=== PATIENT | female | born 1970 | race Caucasian/White ===

== ENCOUNTER → 2021-10-25 | Outpatient (CLI) | payer OTHER ==
--- NOTE | 2021-10-25 14:22 | XR ---
EXAMINATION TYPE: XR cervical spine w flex/ext DATE OF EXAM: 10/25/2021 TECHNIQUE: Frontal, lateral, flexion and extension lateral, oblique, and open mouth view of the cervi rene spine are obtained. HISTORY: M54.2 Cervical Pain COMPARISON: None FINDINGS: The cervical spine is visualized in its entirety from C1 thru the top of T1 level, there i s grade 1 retrolisthesis C4 on C5. Vertebral body heights are maintained. There is mild to moderate d isc space narrowing and mild spurring C4-C5 level. Dynamic imaging shows improved positioning on flex ion but persistent and stable subluxation on extension at the C4-C5 level. There is minimal grade 1 r etrolisthesis C5 on C6 which also becomes more prominent on extension but resolves on flexion. Verteb ral body and disc space height otherwise are maintained. The pre-vertebral soft tissue appears within normal limits. The C1-C2 articulation is within normal limits on the open mouth view. The oblique images are within normal limits. Overlying bra strap is partially imaged. IMPRESSION: As above.
== END | disposition home or self-care (01) ==
LOC: RADXRMAIN 13:36
PROVIDERS: ATTEND Internal Medicine Hospice and Palliative Medicine
DX: M43.12 Spondylolisthesis, cervical region (principal); M50.80 Other cervical disc disorders, unspecified cervical region; M43.5X2 Other recurrent vertebral dislocation, cervical region
CPT/HCPCS: 72052

== ENCOUNTER → 2021-11-11 | Outpatient (CLI) | payer OTHER ==
--- NOTE | 2021-11-12 07:13 | MR ---
MRI CERVICAL SPINE: CLINICAL HISTORY: Neck pain into left arm for 4 weeks. TECHNIQUE: Multiplanar, multisequence imaging of the cervical spine is performed without and with IV contrast. COMPARISON: Cervical spine x-ray October 25, 2021. FINDINGS: Sagittal images of the cervical spine show the craniocervical junction to appear within nor mal limits. The cervical and upper thoracic spinal cord is normal in course, caliber, and signal. Re demonstration of grade 1 retrolisthesis C4 on C5. Mild to moderate disc space narrowing with mild an terior spurring and some heterogeneous Modic type II endplate changes is present at this level. The v ertebral body and intravertebral disk heights otherwise are normal. The bone marrow signal intensity is otherwise within normal limits. Axial images show C2-C3 level to appear within normal limits. Axial images at C3-C4 level show left-sided uncovertebral facet degenerative changes causing asymmetr ic mild right sided neural foraminal narrowing. Axial images at C4-C5 level shows spondylolisthesis with tiny central disc protrusion mildly effacing the anterior thecal sac, there is additional right foraminal disc protrusion causing [id number] e right-sided neural foraminal narrowing. Axial images at C5-C6, C6-C7, C7-T1 levels all appear within normal limits. IMPRESSION: Spondylolisthesis and small disc herniation C4-C5 level.
== END | disposition home or self-care (01) ==
LOC: RADMRIMAIN 15:02
PROVIDERS: ATTEND Internal Medicine Hospice and Palliative Medicine
DX: M50.121 Cervical disc disorder at C4-C5 level with radiculopathy (principal); M43.12 Spondylolisthesis, cervical region
CPT/HCPCS: 72141

== ENCOUNTER → 2022-04-23 | Outpatient (CLI) | payer OTHER ==
--- NOTE | 2022-04-24 10:31 | MM ---
Reason for Exam: Screening (asymptomatic). Last mammogram was performed 2 year(s) and 11 month(s) ago. Patient History: Menarche at age 14. First Full-Term at age 17. Maternal grandmother had ovarian cancer, age 60. Last menstrual period: 03/15/2022 Risk Values: Dorys 5 year model risk: 0.7%. NCI Lifetime model risk: 5.7%. Prior Study Comparison: 05/25/2019 Bilateral MG screening mammo w CAD - 2, [facility] Ace[facility]. Tissue Density: The breast tissue is heterogeneously dense. This may lower the sensitivity of mammography. Findings: Analyzed By CAD. There is no suspicious group of microcalcifications or new suspicious mass in either breast. Overall Assessment: Benign, BI-RAD 2 Management: Screening Mammogram of both breasts in 1 year. A clinical breast exam by your physician is recommended on an annual basis and results should be correlated with mammographic findings. Electronically signed and approved by: Edwin Gudino M.D. Radiologis
== END | disposition home or self-care (01) ==
LOC: RADMAMWWP 11:13
PROVIDERS: ATTEND Obstetrics & Gynecology
DX: Z12.31 Encounter for screening mammogram for malignant neoplasm of breast (principal); Z80.3 Family history of malignant neoplasm of breast
CPT/HCPCS: 77063; 77067

== ENCOUNTER 2022-10-19 18:30 | Observation (INO) | payer OTHER ==
--- NOTE | 2022-10-19 18:46 | ED ---
General Adult HPI - General Chief complaint: Chest Pain Stated complaint: HEADACHE Time Seen by Provider: 10/19/22 18:36 Source: patient Mode of arrival: ambulatory Limitations: no limitations - History of Present Illness Initial comments: This is a 52-year-old female with a past medical history including GERD presents emergency department for epigastric and sternal chest burning. The patient stated this occurred abruptly at 5 PM around dinner and stated that it was consistent. The patient did state the pain does radiate to her back and stated that is associated with minor shortness of breath. The patient stated that she has never had any issues like this in the past and did state that the shortness breath is worse with laying flat. The patient denied any current service of breath, pain in the left jaw or left arm. The patient was resting in bed comfortably without any further acute distress on evaluation. The patient denied any nausea, vomiting, fevers and chills. - Related Data Allergies Allergy/AdvReac Type Severity Reaction Status Date / Time naproxen [From Naprosyn] Allergy Anaphylaxis Verified 10/19/22 18:31 sulfamethoxazole Allergy Anaphylaxis Verified 10/19/22 18:31 [From Bactrim] trimethoprim [From Bactrim] Allergy Anaphylaxis Verified 10/19/22 18:31 Review of Systems ROS Statement: Those systems with pertinent positive or pertinent negative responses have been documented in the HPI. ROS Other: All systems not noted in ROS Statement are negative. Past Medical History Past Medical History: No Reported History History of Any Multi-Drug Resistant Organisms: None Reported Past Surgical History: Tubal Ligation Past Psychological History: No Psychological Hx Reported Smoking Status: Never smoker Past Alcohol Use History: Rare Past Drug Use History: None Reported General Exam Limitations: no limitations General appearance: alert, in no apparent distress Head exam: Present: atraumatic, normocephalic, normal inspection Eye exam: Present: normal appearance, PERRL Pupils: Present: normal accommodation ENT exam: Present: normal exam, normal oropharynx, mucous membranes moist Neck exam: Present: normal inspection, full ROM Respiratory exam: Present: normal lung sounds bilaterally Cardiovascular Exam: Present: regular rate, normal rhythm, normal heart sounds GI/Abdominal exam: Present: soft, tenderness (Minor tenderness to the epigastric region noted), normal bowel sounds Extremities exam: Present: normal inspection, full ROM Back exam: Present: normal inspection, full ROM Neurological exam: Present: alert, oriented X3, CN II-XII intact Psychiatric exam: Present: normal affect, normal mood Skin exam: Present: warm, dry Course Vital Signs 10/19/22 10/19/22 18:31 19:23 Temperature 97.8 F Pulse Rate 82 68 Respiratory 16 16 Rate Blood Pressure 143/83 132/87 O2 Sat by Pulse 100 99 Oximetry EKG Findings - EKG Comments: EKG Findings:: An EKG was obtained and was interpreted by myself. Rate was 70, UT interval was 143, QRS duration 82 and QTC of 386. This EKG showed a normal sinus rhythm with no ST segment elevation or depression noted. Medical Decision Making - Medical Decision Making Was pt. sent in by a medical professional or institution (, DIALLO, CHAIRMAN CEO, urgent care, hospital, or half-way...) When possible be specific @ -No Did you speak to anyone other than the patient for history (EMS, parent, family, police, friend...)? What history was obtained from this source @ -Yes, patient's Did you review nursing and triage notes (agree or disagree)? Why? @ -I reviewed and agree with nursing and triage notes Were old charts reviewed (outside hosp., previous admission, EMS record, old EKG, old radiological studies, urgent care reports/EKG's, half-way records)? Report findings @ -No old charts were reviewed Differential Diagnosis (chest pain, altered mental status, abdominal pain women, abdominal pain men, vaginal bleeding, weakness, fever, dyspnea, syncope, headache, dizziness, GI bleed, back pain, seizure, CVA, palpatations, mental health)? @ -ACS, chest wall muscle strain EKG interpreted by me (3pts min.). @ -As above X-rays interpreted by me (1pt min.). @ -Chest x-ray was obtained and was interpreted by myself showing no acute process CT interpreted by me (1pt min.). @ -None done U/S interpreted by me (1pt. min.). @ -None done What testing was considered but not performed or refused? (CT, X-rays, U/S, labs)? Why? @ -None What meds were considered but not given or refused? Why? @ -None Did you discuss the management of the patient with other professionals (professionals i.e. , PA, CHAIRMAN CEO, lab, RT, psych nurse, psychotherapist social worker, bridge opener, teacher, probation officer, case picker)? Give summary @ -No Was smoking cessation discussed for >3mins.? @ -No Was critical care preformed (if so, how long)? @ -No Were there social determinants of health that impacted care today? How? (Homelessness, low income, unemployed, alcoholism, drug addiction, transportation, low edu. Level, literacy, decrease access to med. care, nursing home, rehab)? @ -No Was there de-escalation of care discussed even if they declined (Discuss DNR or withdrawal of care, Hospice)? DNR status @ -No What co-morbidities impacted this encounter? (DM, HTN, Smoking, COPD, CAD, Cancer, CVA, ARF, Chemo, Hep., AIDS, mental health diagnosis, sleep apnea, morbid obesity)? @ -GERD Was patient admitted / discharged? Hospital course, mention meds given and route, prescriptions, significant lab abnormalities, going to OR and other pertinent info. @ -Patient seen and evaluated emergency department. Physical exam, the patient was resting in bed without any acute distress. Vital signs were stable. Laboratory workup was within normal limits however the patient continued to have epigastric and left lower chest pain. GI cocktail was given on reevaluation the patient had continued pain. The patient was offered observation for cardiology to see and she did agree to this. The patient and her were agreeable to this plan and the patient was admitted in observation in stable condition with cardiology on consult. The patient's primary care physician was being covered by [facility] and Dr. James accepted the patient at 2125. Undiagnosed new problem with uncertain prognosis? @ -No Drug Therapy requiring intensive monitoring for toxicity (Heparin, Nitro, Insulin, Cardizem)? @ -No Were any procedures done? @ -No Diagnosis/symptom? @ -Chest pain, rule out ACS Acute, or Chronic, or Acute on Chronic? @ -Acute Uncomplicated (without systemic symptoms) or Complicated (systemic symptoms)? @ -Complicated Side effects of treatment? @ -No Exacerbation, Progression, or Severe Exacerbation? @ -No Poses a threat to life or bodily function? How? (Chest pain, USA, DC, pneumonia, PE, COPD, DKA, ARF, appy, cholecystitis, CVA, Diverticulitis, Homicidal, Suicidal, threat to staff... and all critical care pts) @ -Yes, chest pain, possible ACS - Lab Data Result diagrams: 10/19/22 18:44 10/19/22 18:44 Lab Results 10/19/22 10/19/22 10/19/22 Range/Units 18:44 18:44 18:44 WBC 6.9 (3.8-10.6) k/uL RBC 4.12 (3.80-5.40) m/uL Hgb 14.2 (11.4-16.0) gm/dL Hct 42.3 (34.0-46.0) % MCV 102.6 H (80.0-100.0) fL MCH 34.6 (25.0-35.0) pg MCHC 33.7 (31.0-37.0) g/dL RDW 12.9 (11.5-15.5) % Plt Count 235 (150-450) k/uL MPV 8.3 Neutrophils % 51 % Lymphocytes % 39 % Monocytes % 5 % Eosinophils % 2 % Basophils % 1 % Neutrophils # 3.5 (1.3-7.7) k/uL Lymphocytes # 2.7 (1.0-4.8) k/uL Monocytes # 0.3 (0-1.0) k/uL Eosinophils # 0.2 (0-0.7) k/uL Basophils # 0.1 (0-0.2) k/uL Macrocytosis Slight D-Dimer (<0.60) mg/L FEU Sodium 140 (137-145) mmol/L Potassium 3.9 (3.5-5.1) mmol/L Chloride 103 (98-107) mmol/L Carbon Dioxide 27 (22-30) mmol/L Anion Gap 10 mmol/L BUN 15 (7-17) mg/dL Creatinine 0.72 (0.52-1.04) mg/dL Est GFR (CKD-EPI)AfAm >90 (>60 ml/min/1.73 sqM) Est GFR (CKD-EPI)NonAf >90 (>60 ml/min/1.73 sqM) Glucose 123 H (74-99) mg/dL Calcium 9.4 (8.4-10.2) mg/dL Magnesium 1.9 (1.6-2.3) mg/dL Total Bilirubin 0.5 (0.2-1.3) mg/dL AST 33 (14-36) U/L ALT 34 (4-34) U/L Alkaline Phosphatase 94 (38-126) U/L Troponin I <0.012 (0.000-0.034) ng/mL NT-Pro-B Natriuret Pep pg/mL Total Protein 8.0 (6.3-8.2) g/dL Albumin 4.7 (3.5-5.0) g/dL Lipase (23-300) U/L 10/19/22 10/19/22 10/19/22 Range/Units 18:44 18:44 20:05 WBC (3.8-10.6) k/uL RBC (3.80-5.40) m/uL Hgb (11.4-16.0) gm/dL Hct (34.0-46.0) % MCV (80.0-100.0) fL MCH (25.0-35.0) pg MCHC (31.0-37.0) g/dL RDW (11.5-15.5) % Plt Count (150-450) k/uL MPV Neutrophils % % Lymphocytes % % Monocytes % % Eosinophils % % Basophils % % Neutrophils # (1.3-7.7) k/uL Lymphocytes # (1.0-4.8) k/uL Monocytes # (0-1.0) k/uL Eosinophils # (0-0.7) k/uL Basophils # (0-0.2) k/uL Macrocytosis D-Dimer <0.17 (<0.60) mg/L FEU Sodium (137-145) mmol/L Potassium (3.5-5.1) mmol/L Chloride (98-107) mmol/L Carbon Dioxide (22-30) mmol/L Anion Gap mmol/L BUN (7-17) mg/dL Creatinine (0.52-1.04) mg/dL Est GFR (CKD-EPI)AfAm (>60 ml/min/1.73 sqM) Est GFR (CKD-EPI)NonAf (>60 ml/min/1.73 sqM) Glucose (74-99) mg/dL Calcium (8.4-10.2) mg/dL Magnesium (1.6-2.3) mg/dL Total Bilirubin (0.2-1.3) mg/dL AST (14-36) U/L ALT (4-34) U/L Alkaline Phosphatase (38-126) U/L Troponin I (0.000-0.034) ng/mL NT-Pro-B Natriuret Pep 37 pg/mL Total Protein (6.3-8.2) g/dL Albumin (3.5-5.0) g/dL Lipase 126 (23-300) U/L Disposition Clinical Impression: Chest pain Disposition: ADMITTED IP TO THIS HOSP Condition: Stable Is patient prescribed a controlled substance at d/c from ED?: No Referrals: Maricarmen Kruger DO [Primary Care Provider] - 1-2 days Time of Disposition: 21:25 Decision to Admit Reason: Admit from EC Decision Date: 10/19/22 Decision Time: 21:25
[2022-10-19] MEDS ORDERED: ONDANSETRON 4 MG/2 ML VIAL IVP STA (18:58)
[2022-10-19] MEDS ORDERED: MAG HYDROX/AL HYDROX/SIMETH 30 ML, HYOSCYAMINE ELIXIR 10 ML, LIDOCAINE VISCOUS 2% 10 ML PO STA ×3 (18:58)
[2022-10-19 19:02] LABS: ALT 34 U/L (4-34); AST 33 U/L (14-36); African American GFR (CKD) >90 (>60 ml/min/1.73 sqM); Albumin 4.7 g/dL (3.5-5.0); Alkaline Phosphatase 94 U/L (38-126); Anion Gap 10 mmol/L; Blood Urea Nitrogen 15 mg/dL (7-17); Calcium 9.4 mg/dL (8.4-10.2); Carbon Dioxide 27 mmol/L (22-30); Chloride 103 mmol/L (98-107); Glucose 123 mg/dL (74-99); Magnesium 1.9 mg/dL (1.6-2.3); Non-African American GFR(CKD) >90 (>60 ml/min/1.73 sqM); Potassium 3.9 mmol/L (3.5-5.1); Sodium 140 mmol/L (137-145); Total Bilirubin 0.5 mg/dL (0.2-1.3)
--- NOTE | 2022-10-19 19:04 | XR ---
EXAMINATION TYPE: XR chest 2V DATE OF EXAM: 10/19/2022 COMPARISON: NONE HISTORY: Chest pain TECHNIQUE: 2 views FINDINGS: Heart and mediastinum are normal. Lungs are clear. Diaphragm is normal. Bony thorax is inta ct IMPRESSION: Normal chest.
[2022-10-19 19:37] LABS: Basophils # (A) 0.1 k/uL (0-0.2); Basophils % (A) 1 %; Eosinophils # (A) 0.2 k/uL (0-0.7); Eosinophils % (A) 2 %; HCT 42.3 % (34.0-46.0); HGB 14.2 gm/dL (11.4-16.0); Lymphocytes # (A) 2.7 k/uL (1.0-4.8); Lymphocytes % (A) 39 %; MCH 34.6 pg (25.0-35.0); MCHC 33.7 g/dL (31.0-37.0); MCV 102.6 fL (80.0-100.0); Macrocytosis Slight; Mean Platelet Volume 8.3; Monocytes # (A) 0.3 k/uL (0-1.0); Monocytes % (A) 5 %; Neutrophils # (A) 3.5 k/uL (1.3-7.7); Neutrophils % (A) 51 %; Platelet Count 235 k/uL (150-450); RBC 4.12 m/uL (3.80-5.40); RDW 12.9 % (11.5-15.5); WBC 6.9 k/uL (3.8-10.6)
[2022-10-19] MEDS ORDERED: NALOXONE 0.4 MG/ML 1 ML VIAL IV PRN (21:27)
[2022-10-20] MEDS: PANTOPRAZOLE 40 MG TABLET PO SCH ×2 (11:43→17:13)
--- NOTE | 2022-10-20 13:17 | P.HPIM ---
History of Present Illness H&P Date: 10/20/22 History of present illness; patient is a 22-year-old lady with past medical significant for peptic ulcer disease, GERD who presented to the ER because of chest pain. Patient stated that this chest pain started after dinner and was central in location, was a pressure-like sensation, radiating to her back and was associated with the shortness of breath, aggravated by laying flat. Patient does have history of peptic ulcer disease and was taking Prilosec in the past. Patient does admit to taking [id number] Motrin for her flulike symptoms for the last 1 week. Patient was worked up in the ER, initial white count was 6.9, hemoglobin of 14.2, d-dimer was 0.17, sodium 140, potassium 3.9, carbon dioxide 27, bun 15, creatinine 0.72. EKG done did not show any acute ST segment changes . Patient was admitted for further evaluation and treatment REVIEW OF SYSTEMS: CONSTITUTIONAL: No fever, no malaise, no fatigue. HEENT: No recent visual problems or hearing problems. Denied any sore throat. CARDIOVASCULAR: As mentioned in HPI PULMONARY: no cough, no hemoptysis. GASTROINTESTINAL: No diarrhea, no nausea, no vomiting, no abdominal pain. NEUROLOGICAL: No headaches, no weakness, no numbness. HEMATOLOGICAL: Denies any bleeding or petechiae. GENITOURINARY: Denies any burning micturition, frequency, or urgency. MUSCULOSKELETAL/RHEUMATOLOGICAL: Denies any joint pain, swelling, or any muscle pain. ENDOCRINE: Denies any polyuria or polydipsia. The rest of the 14-point review of systems is negative. PHYSICAL EXAMINATION: GENERAL: The patient is alert and oriented x3, not in any acute distress. Well developed, well nourished. HEENT: Pupils are round and equally reacting to light. EOMI. No scleral icterus. No conjunctival pallor. Normocephalic, atraumatic. No pharyngeal erythema. No thyromegaly. CARDIOVASCULAR: S1 and S2 present. No murmurs, rubs, or gallops. PULMONARY: Chest is clear to auscultation, no wheezing or crackles. ABDOMEN: Soft, nontender, nondistended, normoactive bowel sounds. No palpable organomegaly. MUSCULOSKELETAL: No joint swelling or deformity. EXTREMITIES: No cyanosis, clubbing, or pedal edema. NEUROLOGICAL: Gross neurological examination did not reveal any focal deficits. SKIN: No rashes. Assessment and plan Chest pain Peptic ulcer disease Plan; Continue telemetry monitoring Monitor vital signs Monitor CBC Trend troponins. Protonix 40 mg twice a day. Cardiology consulted Past Medical History Past Medical History: GERD/Reflux History of Any Multi-Drug Resistant Organisms: None Reported Past Surgical History: Hernia Repair, Tubal Ligation Past Psychological History: No Psychological Hx Reported Smoking Status: Never smoker Past Alcohol Use History: Rare Past Drug Use History: None Reported Medications and Allergies Home Medications Medication Instructions Recorded Confirmed Type Black Cohosh 540 mg PO DAILY 10/19/22 10/19/22 History Fexofenadine HCl [Yessi Allergy] 180 mg PO DAILY 10/19/22 10/19/22 History Glucosam/Chond/Hyalu/Cf Borate 1 tab PO DAILY 10/19/22 10/19/22 History [Move Free Joint Health Tablet] Ibuprofen/Pseudoephedrine HCl 1 tab PO BID PRN 10/19/22 10/19/22 History [Advil Cold & Sinus Caplet] Multivitamins, Thera [Multivitamin 1 tab PO DAILY 10/19/22 10/19/22 History (formulary)] Vitamin E (Dl,Tocopheryl Acet) 400 unit PO DAILY 10/19/22 10/19/22 History [Vitamin E (400 Iu = 180 mg)] valACYclovir HCL [Valacyclovir] 1,000 mg PO DAILY PRN 10/19/22 10/19/22 History Allergies Allergy/AdvReac Type Severity Reaction Status Date / Time naproxen [From Naprosyn] Allergy Anaphylaxis Verified 10/19/22 21:38 sulfamethoxazole Allergy Anaphylaxis Verified 10/19/22 21:38 [From Bactrim] trimethoprim [From Bactrim] Allergy Anaphylaxis Verified 10/19/22 21:38 Physical Exam Vitals: Vital Signs Temp Pulse Pulse Resp BP BP Pulse Ox 10/20/22 11:58 98.4 F 63 16 105/71 99 10/20/22 08:00 65 16 125/74 98 10/20/22 04:00 60 16 118/74 97 10/19/22 22:25 97.8 F 67 16 128/76 98 10/19/22 21:45 70 18 148/95 98 10/19/22 19:23 68 16 132/87 99 10/19/22 18:31 97.8 F 82 16 143/83 100 Intake and Output 10/19/22 10/20/22 10/20/22 22:59 06:59 14:59 Intake Total 485 Balance 485 Intake: Oral 485 Other: Voiding Method Toilet Toilet # Voids 1 1 Weight 73.482 kg Results CBC & Chem 7: 10/19/22 18:44 10/19/22 18:44 Labs: Abnormal Lab Results - Last 24 Hours (Table) 10/19/22 10/19/22 Range/Units 18:44 18:44 MCV 102.6 H (80.0-100.0) fL Glucose 123 H (74-99) mg/dL
--- NOTE | 2022-10-20 13:31 | P.CRDCN ---
History of Present Illness Consult date: 10/20/22 History of present illness: Patient is a pleasant 52-year-old female with a known history of acid reflux and history of gastric ulcer due to over use of ibuprofen. Patient does not follow with a quill cleaner. We then consult that to see the patient for chest pain and rule out ACS. Patient initially presented with chest pain in the upper gastric area. It did not radiate anywhere. Troponins were negative. BNP was negative. She is not on a PPI. She does have a strong family history of CAD. Her EKG showed sinus rhythm with possible right ventricular conduction delay. She has been using [id number] cough medicine with ibuprofen and it. We'll obtain additional troponins to total 3. Will obtain a 2-D echocardiogram to evaluate LV function and wall wall motion. We will obtain a stress echo to rule out ACS Review of Systems REVIEW OF SYSTEMS At the time of my exam: CONSTITUTIONAL: Denies fever or chills. EYES: Negative for vision changes ENT: Negative for hearing loss CARDIOVASCULAR: Denies shortness of breath, diaphoresis, orthopnea, PND or palpitations. Reports chest pain VASCULAR: Denies edema RESPIRATORY: Denies cough. GASTROINTESTINAL: Denies abdominal pain, diarrhea, constipation, nausea or vomiting. MUSCULOSKELETAL: Denies myalgias. NEUROLOGIC: Denies numbness, tingling, headache or weakness. ENDOCRINE: Denies fatigue, weight change, polydipsia or polyurina. GENITOURINARY: Denies burning, hematuria or urgency with micturation. HEMATOLOGIC: Denies history of anemia or bleeding. DERMATOLOGY: Denies rash or skin sores PSYCH: Negative for depression or hallucinations. Past Medical History Past Medical History: GERD/Reflux History of Any Multi-Drug Resistant Organisms: None Reported Past Surgical History: Hernia Repair, Tubal Ligation Past Psychological History: No Psychological Hx Reported Smoking Status: Never smoker Past Alcohol Use History: Rare Past Drug Use History: None Reported Medications and Allergies Home Medications Medication Instructions Recorded Confirmed Type Black Cohosh 540 mg PO DAILY 10/19/22 10/19/22 History Fexofenadine HCl [Yessi Allergy] 180 mg PO DAILY 10/19/22 10/19/22 History Glucosam/Chond/Hyalu/Cf Borate 1 tab PO DAILY 10/19/22 10/19/22 History [Move Free Joint Health Tablet] Ibuprofen/Pseudoephedrine HCl 1 tab PO BID PRN 10/19/22 10/19/22 History [Advil Cold & Sinus Caplet] Multivitamins, Thera [Multivitamin 1 tab PO DAILY 10/19/22 10/19/22 History (formulary)] Vitamin E (Dl,Tocopheryl Acet) 400 unit PO DAILY 10/19/22 10/19/22 History [Vitamin E (400 Iu = 180 mg)] valACYclovir HCL [Valacyclovir] 1,000 mg PO DAILY PRN 10/19/22 10/19/22 History Allergies Allergy/AdvReac Type Severity Reaction Status Date / Time naproxen [From Naprosyn] Allergy Anaphylaxis Verified 10/19/22 21:38 sulfamethoxazole Allergy Anaphylaxis Verified 10/19/22 21:38 [From Bactrim] trimethoprim [From Bactrim] Allergy Anaphylaxis Verified 10/19/22 21:38 Physical Exam Vitals: Vital Signs Temp Pulse Pulse Resp BP BP Pulse Ox 10/20/22 13:14 63 16 10/20/22 11:58 98.4 F 63 16 105/71 99 10/20/22 08:00 65 16 125/74 98 10/20/22 04:00 60 16 118/74 97 10/19/22 22:25 97.8 F 67 16 128/76 98 10/19/22 21:45 70 18 148/95 98 10/19/22 19:23 68 16 132/87 99 10/19/22 18:31 97.8 F 82 16 143/83 100 Intake and Output 10/19/22 10/20/22 10/20/22 22:59 06:59 14:59 Intake Total 485 Balance 485 Intake: Oral 485 Other: Voiding Method Toilet Toilet # Voids 1 1 Weight 73.482 kg General: The patient is awake and alert, in no distress, and does not appear acutely ill. Skin: Skin is warm and dry and no rashes or lesions are noted. Eye: Pupils are equal, round and reactive to light, extra-ocular movements are intact; there is normal conjunctiva bilaterally. Ears, nose, mouth and throat: There are moist mucous membranes and no oral lesions. Neck: The neck is supple, there is no tenderness or JVD. Cardiovascular: There is regular rate and rhythm. No murmur, rub or gallop is appreciated. Respiratory: Lungs are clear to auscultation, respirations are non-labored, breath sounds are equal. Gastrointestinal: Soft, non-distended, non-tender abdomen without masses or organomegaly noted. There is no rebound or guarding present. Bowel sounds are unremarkable. Back: There is no tenderness to palpation in the midline. There is no obvious deformity. Musculoskeletal: Normal ROM, no tenderness, There is no pedal edema. There is no calf tenderness or swelling. Extremities: Mild bilateral pitting edema Vascular: Femoral pulse is normal. Posterior tibial pulses are normal .Dorsalis pedis is palpable. Neurological: CN II-XII intact. There are no obvious motor or sensory deficits. Speech is normal. Psychiatric: Cooperative, appropriate mood & affect, normal judgment Results 10/19/22 18:44 10/19/22 18:44 Cardiac Enzymes 10/19/22 10/19/22 10/20/22 Range/Units 18:44 18:44 10:10 AST 33 (14-36) U/L Troponin I <0.012 <0.012 (0.000-0.034) ng/mL CBC 10/19/22 Range/Units 18:44 WBC 6.9 (3.8-10.6) k/uL RBC 4.12 (3.80-5.40) m/uL Hgb 14.2 (11.4-16.0) gm/dL Hct 42.3 (34.0-46.0) % Plt Count 235 (150-450) k/uL Comprehensive Metabolic Panel 10/19/22 Range/Units 18:44 Sodium 140 (137-145) mmol/L Potassium 3.9 (3.5-5.1) mmol/L Chloride 103 (98-107) mmol/L Carbon Dioxide 27 (22-30) mmol/L BUN 15 (7-17) mg/dL Creatinine 0.72 (0.52-1.04) mg/dL Glucose 123 H (74-99) mg/dL Calcium 9.4 (8.4-10.2) mg/dL AST 33 (14-36) U/L ALT 34 (4-34) U/L Alkaline Phosphatase 94 (38-126) U/L Total Protein 8.0 (6.3-8.2) g/dL Albumin 4.7 (3.5-5.0) g/dL Current Medications Generic Name Dose Route Start Last Admin Trade Name Freq PRN Reason Stop Dose Admin Naloxone HCl 0.2 mg 10/19/22 21:27 Naloxone 0.4 Mg/Ml 1 Ml Vial IV Q2M PRN Opioid Reversal Pantoprazole Sodium 40 mg 10/20/22 10:45 10/20/22 11:43 Pantoprazole 40 Mg Tablet PO 40 mg AC-BID MARTITA Administration Intake and Output 10/19/22 10/20/22 10/20/22 22:59 06:59 14:59 Intake Total 485 Balance 485 Intake: Oral 485 Other: Voiding Method Toilet Toilet # Voids 1 1 Weight 73.482 kg 10/19/22 18:44 10/19/22 18:44 Assessment and Plan Assessment: Chest pain rule out ACS Plan: Obtain a 2-D echocardiogram Obtain echo stress test Obtain 2 additional troponin readings Continue with cardiac monitoring Further recommendations based on clinical course The above impression and plan of care have been discussed and directed by the signing physician. Myrna Brown, nurse practitioner, acting as scribe for signing physician.
[2022-10-21] MEDS: PANTOPRAZOLE 40 MG TABLET PO SCH ×2 (06:01→18:09)
[2022-10-21 06:58] VITALS: TEMP 98.3
[2022-10-21] MEDS ORDERED: ONDANSETRON 4 MG/2 ML VIAL IVP PRN ×2 (08:46→08:50)
[2022-10-21 10:21] VITALS: RESP 16
[2022-10-21 11:58] VITALS: BP 117/77; PULSE 75
--- NOTE | 2022-10-21 14:39 | P.PN ---
Subjective Progress Note Date: 10/21/22 patient is a 22-year-old lady with past medical significant for peptic ulcer disease, GERD who presented to the ER because of chest pain. Patient stated that this chest pain started after dinner and was central in location, was a pressure-like sensation, radiating to her back and was associated with the s hortness of breath, aggravated by laying flat. Patient does have history of peptic ulcer disease and was taking Prilosec in the past. Patient does admit to taking [id number] Motrin for her flulike symptoms for the last 1 week. Patient was worked up in the ER, initial white count was 6.9, hemoglobin of 14.2, d-dimer was 0.17, sodium 140, potassium 3.9, carbon dioxide 27, bun 15, creatinine 0.72. EKG done did not show any acute ST segment changes . Patient was admitted for further evaluation and treatment 10/21. Patient seen and examined currently nothing by mouth going for stress t est. Patient was having nausea this. Morning. Denied any chest pain REVIEW OF SYSTEMS: CONSTITUTIONAL: No fever, no malaise,. CARDIOVASCULAR: No chest pain, no palpitations, no syncope. PULMONARY: No shortness of breath, no cough, GASTROINTESTINAL: No diarrhea,no abdominal pain. NEUROLOGICAL: No headaches, no weakness, PHYSICAL EXAMINATION: GENERAL: The patient is alert and oriented x3, not in any acute distress. Well developed, well nourished. HEENT: Pupils are round and equally reacting to light. EOMI. No scleral icterus. No conjunctival pallor. Normocephalic, atraumatic. No pharyngeal erythema. No thyromegaly. CARDIOVASCULAR: S1 and S2 present. No murmurs, rubs, or gallops. PULMONARY: Chest is clear to auscultation, no wheezing or crackles. ABDOMEN: Soft, nontender, nondistended, normoactive bowel sounds. No palpable organomegaly. MUSCULOSKELETAL: No joint swelling or deformity. EXTREMITIES: No cyanosis, clubbing, or pedal edema. NEUROLOGICAL: Gross neurological examination did not reveal any focal deficits. SKIN: No rashes. Assessment and plan Chest pain Peptic ulcer disease Plan; Continue telemetry monitoring Monitor vital signs Monitor CBC Trend troponins. Protonix 40 mg twice a day. Follow-up on 2-D echo follow-up on stress test Follow-up on cardiology recommendations Objective - Vital Signs Vital signs: Vital Signs Temp 98.3 F 10/21/22 04:00 Pulse 75 10/21/22 11:57 Resp 16 10/21/22 11:57 BP 117/77 10/21/22 11:57 Pulse Ox 97 10/21/22 11:57 FiO2 Intake & Output 10/20/22 10/21/22 10/21/22 18:59 06:59 18:59 Intake Total 180 Balance 180 Intake: Oral 180 Other: Voiding Method Toilet Toilet # Voids 3 2 - Labs CBC & Chem 7: 10/19/22 18:44 10/19/22 18:44
--- NOTE | 2022-10-21 16:21 | CA ---
Stress Echo Report Jasmin Thapa Age: 52 Gender: F : 1970 Exam Date: 10/21/2022 09:01 Exam Location: [facility] Ht (in): 65 Wt (lb): 162 Ordering Physician: Myrna Brown Referring Physician: LISET, Tennis Professional: SUZI Technologist Procedure CPT: Indication: CP ICD-9 Codes: Rhythm: Patient History: Cardiac Medications: Medications in past 24 hours: Contrast: Stress Results Protocol: Adis Total dose(mL): Exercise Duration (min:sec): 7:[address] Depression (mm): Angina Score: Younger Score: METS: 8.5 Resting HR: 62 Resting BP: 139 / 87 Peak HR: 159 Peak BP: 158 / 96 Max Predicted HR: 167 95 % Max Predicted HR Target HR: 142 Double Product: [id number] Stress Summary: BP Response: Reason for Termination: Reached target heart rate or work-load Cardiac Symptoms: NO SYMPTOMS ECG Analysis Resting ECG: Stress ECG: Arrhythmia: Echo Analysis Resting Echo: Peak Echo Analysis: MEASUREMENTS (Male/Female) Normal Values CONCLUSIONS Exercise stress echo Baseline heart rate 60 beats a minute, Baseline blood pressure 139/80; his mercury baseline 12-lead EKG is normal Patient exercised a Adis protocol for 7 minutes achieving a peak heart rate of 159 beats a minute. Peak blood pressure 158/96. His mercury Asymptomatic No ECG evidence of ischemia no echocardiographic evidence for ischemia Dr. Tony Schneider MD (Electronically Signed) Final Date: 21 October 2022 16:20
--- NOTE | 2022-10-21 17:58 | CA ---
Transthoracic Echo Report Name: Jasmin Thapa Age: 52 Gender: F : 1970 Exam Date: 10/21/2022 09:20 Exam Location: [facility] Ht (in): 65 Wt (lb): 162 Ordering Physician: Myrna Brown Attending/Referring Phys: Ships Equipment Engineer Sarah Barrett RDCS Procedure CPT: Indications: CP Cardiac Hx: Technical Quality: Fair Contrast 1: Total Dose (mL): Contrast 2: Total Dose (mL): MEASUREMENTS (Male / Female) Normal Values 2D ECHO LV Diastolic Diameter PLAX 3.7 cm 4.2 - 5.9 / 3.9 - 5.3 cm LV Systolic Diameter PLAX 2.4 cm IVS Diastolic Thickness 1.0 cm 0.6 - 1.0 / 0.6 - 0.9 cm LVPW Diastolic Thickness 1.0 cm 0.6 - 1.0 / 0.6 - 0.9 cm LV Relative Wall Thickness 0.5 RV Internal Dim ED PLAX 4.7 cm LA Volume 28.9 cm??? 18 - 58 / 22 - 52 cm??? M-MODE Aortic Root Diameter MM 2.7 cm LA Systolic Diameter MM 3.8 cm LA Ao Ratio MM 1.4 AV Cusp Separation MM 1.6 cm DOPPLER AV Peak Velocity 118.9 cm/s AV Peak Gradient 5.7 mmHg LVOT Peak Velocity 107.7 cm/s LVOT Peak Gradient 4.6 mmHg MV Area PHT 4.0 cm??? Mitral E Point Velocity 57.7 cm/s Mitral A Point Velocity 66.7 cm/s Mitral E to A Ratio 0.9 MV Deceleration Time 188.5 ms TR Peak Velocity 172.2 cm/s TR Peak Gradient 11.9 mmHg Right Ventricular Systolic Press 16.9 mmHg FINDINGS Left Ventricle Normal Left ventricular size, wall thickness, systolic function with no obvious regional wall motion abnormalities. Normal Left ventricular diastolic filling pattern. Left ventricular ejection fraction is estimated at 55-60 %. Right Ventricle Moderate right ventricular dilatation. Right ventricular systolic pressure within normal limits. Right Atrium Normal right atrial size. Left Atrium Normal left atrial size. Mitral Valve Structurally normal mitral valve. No mitral stenosis, regurgitation or prolapse. Aortic Valve No aortic valve stenosis or regurgitation. Tricuspid Valve Structurally normal tricuspid valve. Mild tricuspid regurgitation. Pulmonic Valve Trace pulmonic regurgitation. Pericardium No pericardial effusion. Aorta Normal size aortic root and proximal ascending aorta. CONCLUSIONS Preserved LV systolic function Mild tricuspid regurgitation Previewed by: Dr. Tony Schneider MD (Electronically Signed) Final Date: 21 October 2022 17:57
--- NOTE | 2022-10-22 08:41 | P.DS ---
Providers Date of admission: 10/19/22 21:27 Expected date of discharge: 10/21/22 Attending physician: Haresh James MD Consults: 10/19/22 21:27 Consult Physician Routine Consulting Provider: [facility] Consult Reason/Comments: Chest pain, r/o ACS Do you want consulting provider notified?: Yes, Notify in am Primary care physician: [facility] Course: Discharge diagnoses; Chest pain Peptic ulcer disease Hospital course; patient is a 22-year-old lady with past medical significant for peptic ulcer disease, GERD who presented to the ER because of chest pain. Patient stated that this chest pain started after dinner and was central in location, was a pressure-like sensation, radiating to her back and was associated with the shortness of breath, aggravated by laying flat. Patient does have history of peptic ulcer disease and was taking Prilosec in the past. Patient does admit to taking [id number] Motrin for her flulike symptoms for the last 1 week. Patient was worked up in the ER, initial white count was 6.9, hemoglobin of 14.2, d-dimer was 0.17, sodium 140, potassium 3.9, carbon dioxide 27, bun 15, creatinine 0.72. EKG done did not show any acute ST segment changes . Patient was admitted for further evaluation and treatment 10/21. Patient seen and examined currently nothing by mouth going for stress test. Patient was having nausea this. Morning. Denied any chest pain Stress echo done, negative for any ischemia, no cardiac evidence for ischemia. Cardiology cleared the patient for discharge PHYSICAL EXAMINATION: GENERAL: The patient is alert and oriented x3, not in any acute distress. Well developed, well nourished. HEENT: Pupils are round and equally reacting to light. EOMI. No scleral icterus. No conjunctival pallor. Normocephalic, atraumatic. No pharyngeal erythema. No thyromegaly. CARDIOVASCULAR: S1 and S2 present. No murmurs, rubs, or gallops. PULMONARY: Chest is clear to auscultation, no wheezing or crackles. ABDOMEN: Soft, nontender, nondistended, normoactive bowel sounds. No palpable organomegaly. MUSCULOSKELETAL: No joint swelling or deformity. EXTREMITIES: No cyanosis, clubbing, or pedal edema. NEUROLOGICAL: Gross neurological examination did not reveal any focal deficits. SKIN: No rashes. Patient Condition at Discharge: Stable Plan - Discharge Summary Discharge Rx Participant: Yes New Discharge Prescriptions: New Pantoprazole [Protonix] 40 mg PO AC-BID #60 tab Continue Vitamin E (Dl,Tocopheryl Acet) [Vitamin E (400 Iu = 180 mg)] 400 unit PO DAILY Multivitamins, Thera [Multivitamin (formulary)] 1 tab PO DAILY valACYclovir HCL [Valacyclovir] 1,000 mg PO DAILY PRN PRN Reason: Cold Sores Ibuprofen/Pseudoephedrine HCl [Advil Cold & Sinus Caplet] 1 tab PO BID PRN PRN Reason: Cold Symptoms Glucosam/Chond/Hyalu/Cf Borate [Move Free Joint Health Tablet] 1 tab PO DAILY Fexofenadine HCl [Yessi Allergy] 180 mg PO DAILY Black Cohosh 540 mg PO DAILY Discharge Medication List Black Cohosh 540 mg PO DAILY 10/19/22 [History] Fexofenadine HCl [Yessi Allergy] 180 mg PO DAILY 10/19/22 [History] Glucosam/Chond/Hyalu/Cf Borate [Move Free Joint Health Tablet] 1 tab PO DAILY 10/19/22 [History] Ibuprofen/Pseudoephedrine HCl [Advil Cold & Sinus Caplet] 1 tab PO BID PRN 10/19/22 [History] Multivitamins, Thera [Multivitamin (formulary)] 1 tab PO DAILY 10/19/22 [History] Vitamin E (Dl,Tocopheryl Acet) [Vitamin E (400 Iu = 180 mg)] 400 unit PO DAILY 10/19/22 [History] valACYclovir HCL [Valacyclovir] 1,000 mg PO DAILY PRN 10/19/22 [History] Pantoprazole [Protonix] 40 mg PO AC-BID #60 tab 10/21/22 [Rx] Follow up Appointment(s)/Referral(s): [facility] [Provider Group] - 1 Week (Office is closed. Please call to schedule appointment) Maricarmen Kruger DO [Primary Care Provider] - 1-2 days (Office is closed. Plese call to schedule appointment) Discharge Disposition: HOME SELF-CARE
== END 2022-10-21 18:13 | disposition home or self-care (01) ==
LOC: EC 18:30 → 3SCARD 21:27
PROVIDERS: ADMIT Internal Medicine; ATTEND Internal Medicine
DX: R07.89 Other chest pain (principal); K27.9 Peptic ulcer, site unspecified, unspecified as acute or chronic, without hemorrhage or perforation; K21.9 Gastro-esophageal reflux disease without esophagitis; I07.1 Rheumatic tricuspid insufficiency; R06.02 Shortness of breath; R11.0 Nausea; Z88.1 Allergy status to other antibiotic agents; Z88.2 Allergy status to sulfonamides; Z88.6 Allergy status to analgesic agent; Z98.51 Tubal ligation status; Z87.11 Personal history of peptic ulcer disease; Z98.890 Other specified postprocedural states; Z82.49 Family history of ischemic heart disease and other diseases of the circulatory system
CPT/HCPCS: 96376; 96374; 99285; 36415; 93005; 93306; 93351; 85379; 83880; 80053; 83690; 83735; 84484 ×2; 85025; 71046; G0378 ×3; J2405 ×2

== ENCOUNTER 2023-07-20 22:57 | Emergency (ER) | payer OTHER ==
[2023-07-20 23:12] VITALS: BP 149/77; PULSE 67; RESP 18; TEMP 97.9
[2023-07-20] MEDS ORDERED: LIDOCAINE 1% INJ 10MG/ML (20 ML MDV) SQ ONE (23:14)
[2023-07-20] MEDS ORDERED: BUPIVACAINE (PF) 0.25% 30 ML VIAL SQ STA (23:14)
--- NOTE | 2023-07-20 23:15 | ED ---
ENT HPI - General Chief complaint: Dental/Oral Stated complaint: Tooth pain Time Seen by Provider: 07/20/23 23:12 Source: patient Mode of arrival: ambulatory Limitations: no limitations - History of Present Illness Initial comments: Jasmin is a pleasant 43-year-old female presents to ER today for reevaluation of persistent dental pain. Patient reports that she developed pain in the right upper molar over a week ago she saw her regular dentist advised her she needs to see an oral surgeon for suture removal. She was prescribed oxacillin which she completed with no improvement she then followed up at an urgent care and was prescribed a low dose clindamycin which she's been taking with no improvement she feels that the swelling and tenderness is worsening. He has no fevers no trismus this pain and slight swelling of her face. Patient has contacted a oral surgeon in [place] who she has a consultation with next month. - Related Data Home Medications Medication Instructions Recorded Confirmed Black Cohosh 540 mg PO DAILY 10/19/22 10/19/22 Fexofenadine HCl [Yessi Allergy] 180 mg PO DAILY 10/19/22 10/19/22 Glucosam/Chond/Hyalu/Cf Borate 1 tab PO DAILY 10/19/22 10/19/22 [Move Free Joint Health Tablet] Ibuprofen/Pseudoephedrine HCl 1 tab PO BID PRN 10/19/22 10/19/22 [Advil Cold & Sinus Caplet] Multivitamins, Thera [Multivitamin 1 tab PO DAILY 10/19/22 10/19/22 (formulary)] Vitamin E (Dl,Tocopheryl Acet) 400 unit PO DAILY 10/19/22 10/19/22 [Vitamin E (400 Iu = 180 mg)] valACYclovir HCL [Valacyclovir] 1,000 mg PO DAILY PRN 10/19/22 10/19/22 Previous Rx's Medication Instructions Recorded Pantoprazole [Protonix] 40 mg PO AC-BID #60 tab 10/21/22 Clindamycin [Cleocin] 450 mg PO Q8H 14 Days #128 cap 07/20/23 Allergies Allergy/AdvReac Type Severity Reaction Status Date / Time naproxen [From Naprosyn] Allergy Anaphylaxis Verified 07/20/23 22:58 sulfamethoxazole Allergy Anaphylaxis Verified 07/20/23 22:58 [From Bactrim] trimethoprim [From Bactrim] Allergy Anaphylaxis Verified 07/20/23 22:58 Review of Systems ROS Statement: Those systems with pertinent positive or pertinent negative responses have been documented in the HPI. ROS Other: All systems not noted in ROS Statement are negative. Past Medical History Past Medical History: GERD/Reflux Additional Past Medical History / Comment(s): herniated stomach History of Any Multi-Drug Resistant Organisms: None Reported Past Surgical History: Tubal Ligation Past Psychological History: No Psychological Hx Reported Smoking Status: Never smoker Past Alcohol Use History: Rare Past Drug Use History: None Reported General Exam - General Exam Comments Initial Comments: Physical Exam GENERAL: Patient is well-developed and well-nourished. Patient is nontoxic and well-hydrated and is in no distress. HENT: Normocephalic, Atraumatic. Right upper molar with some surrounding erythema and no obvious abscess EYES: PERRL, EOMI PULMONARY: Unlabored respirations. CARDIOVASCULAR: RRR Warm and well perfused extremities ABDOMEN: Non-distended SKIN: No rashes or bruising : Deferred NEUROLOGIC: Alert and oriented Normal speech Normal gait MUSCULOSKELETAL: Moving all extremities with no apparent injury PSYCHIATRIC: No SI/HI Limitations: no limitations Course Vital Signs 07/20/23 22:58 Temperature 97.9 F Pulse Rate 67 Respiratory 18 Rate Blood Pressure 149/77 O2 Sat by Pulse 100 Oximetry Procedures - Nerve Block Consent Obtained: verbal consent Local Anesthetic Used: Other (Marcaine 0.25%) Amount of anesthesia used: 2 (ml) Side: right Intraoral Nerve Block: inferior alveolar Procedure Successful: Yes Complications: none Patient Tolerated Procedure: well, no complications Medical Decision Making - Medical Decision Making Was pt. sent in by a medical professional or institution (, PA, MACHINE BENDER, urgent care, hospital, or halfway...) When possible be specific @ -No Did you speak to anyone other than the patient for history (EMS, parent, family, police, friend...)? What history was obtained from this source @ -No Did you review nursing and triage notes (agree or disagree)? Why? @ -I reviewed and agree with nursing and triage notes Were old charts reviewed (outside hosp., previous admission, EMS record, old EKG, old radiological studies, urgent care reports/EKG's, halfway records)? Report findings @ -No old charts were reviewed Differential Diagnosis (chest pain, altered mental status, abdominal pain women, abdominal pain men, vaginal bleeding, weakness, fever, dyspnea, syncope, headache, dizziness, GI bleed, back pain, seizure, CVA, palpatations, mental health, musculoskeletal)? @ -Differential includes dental infection, dental abscess, fractured tooth, but was angina EKG interpreted by me (3pts min.). @ -As above X-rays interpreted by me (1pt min.). @ -None done CT interpreted by me (1pt min.). @ -None done U/S interpreted by me (1pt. min.). @ -None done What testing was considered but not performed or refused? (CT, X-rays, U/S, labs)? Why? @ -None What meds were considered but not given or refused? Why? @ -None Did you discuss the management of the patient with other professionals (professionals i.e. , PA, MACHINE BENDER, lab, RT, psych nurse, social media marketer, carton folder, teacher, correctional security officer, leather case finisher)? Give summary @ -No Was smoking cessation discussed for >3mins.? @ -No Was critical care preformed (if so, how long)? @ -No Were there social determinants of health that impacted care today? How? (Homelessness, low income, unemployed, alcoholism, drug addiction, transportation, low edu. Level, literacy, decrease access to med. care, longterm, rehab)? @ -No Was there de-escalation of care discussed even if they declined (Discuss DNR or withdrawal of care, Hospice)? DNR status @ -No What co-morbidities impacted this encounter? (DM, HTN, Smoking, COPD, CAD, Cancer, CVA, ARF, Chemo, Hep., AIDS, mental health diagnosis, sleep apnea, morbid obesity)? @ -None Was patient admitted / discharged? Hospital course, mention meds given and route, prescriptions, significant lab abnormalities, going to OR and other pertinent info. @ -Discharge Patient was seen, patient was agreeable to dental block for pain management and increasing dose of clindamycin to 453 times daily for up to 14 days. Patient was advised and his contact her insurance for a list of oral surgeons and make phone calls to see if there are any was in a drivable distance he can see her any sooner for an emergent appointment. Patient was also advised on supportive care including saltwater mouthwash and possibly peroxide mouthwash. Undiagnosed new problem with uncertain prognosis? @ -No Drug Therapy requiring intensive monitoring for toxicity (Heparin, Nitro, Insulin, Cardizem)? @ -No Were any procedures done? @ - A dental block Diagnosis/symptom? @ -Dental infection Acute, or Chronic, or Acute on Chronic? @ -default Uncomplicated (without systemic symptoms) or Complicated (systemic symptoms)? @ -default Side effects of treatment? @ -No Exacerbation, Progression, or Severe Exacerbation? @ -No Poses a threat to life or bodily function? How? (Chest pain, [place], [place], pneumonia, PE, COPD, DKA, ARF, appy, cholecystitis, CVA, Diverticulitis, Homicidal, Suicidal, threat to staff... and all critical care pts) @ -No Disposition Clinical Impression: Pain, dental Disposition: HOME SELF-CARE Condition: Stable Additional Instructions: Discontinue the low dose Clindamycin and take the higher dose - 450mg oral 3x a day for 14 days Prescriptions: Clindamycin [Cleocin] 450 mg PO Q8H 14 Days #128 cap Is patient prescribed a controlled substance at d/c from ED?: No Referrals: None,Stated [Primary Care Provider] - 1-2 days
== END 2023-07-21 00:01 | disposition home or self-care (01) ==
LOC: EC 22:57
DX: K04.7 Periapical abscess without sinus (principal); Z88.2 Allergy status to sulfonamides; Z88.6 Allergy status to analgesic agent; Z88.1 Allergy status to other antibiotic agents
CPT/HCPCS: 64400; 99282; J2001; J0665; 96372